=== PATIENT | male | born 1960 | race African-American/Black ===

== ENCOUNTER 2019-01-16 11:19 | Day surgery (SDC) | payer BC ==
[~2019-01-16 11:19] MED LIST: Betamethasone Acetate/Betamethasone Sod Phosphate 30 MG/5 ML MDV ONE; Iopamidol 200-M 10 ML vial ITHECAL ONE; Lidocaine 2% 5 ML SDV ONE; Ropivacaine 0.5% 5 MG/ML 30 ML SDV ONE
--- NOTE | 2019-01-16 19:25 | OR ---
SURGEON: Louise Ma D.O. DATE OF PROCEDURE: 01/16/2019 OPERATING ROOM STAFF PRESENT: 1. Tamara Willis RN. 2. Morgan Joseph RN. 3. RT Felipe. PREOPERATIVE DIAGNOSES: 1. Lumbar degenerative disk disease, L4-5 and L5-S1. 2. Lumbar spinal stenosis. 3. Lumbar, right lower extremity radiculopathy. POSTOPERATIVE DIAGNOSES: 1. Lumbar degenerative disk disease, L4-5 and L5-S1. 2. Lumbar spinal stenosis. 3. Lumbar, right lower extremity radiculopathy. PROCEDURES PERFORMED: 1. Right transforaminal epidural steroid injection at L4. 2. Right transforaminal epidural steroid injection at L5. 3. Fluoroscopic guidance for needle placement. 4. Local with oral Valium for sedation. PREOPERATIVE PAIN: 8/10. POSTOPERATIVE PAIN: 0/10. SCREENING QUESTIONS: The patient answered "no" to all of the following questions: 1. Are you allergic to iodine, Betadine or latex? 2. Do you have a bleeding disorder? 3. Do you have any joint replacements, heart valve replacements, or a pacemaker? 4. Are you allergic to anti-inflammatories or blood thinners? 5. Do you have any current local or systemic infections? MEDICAL NECESSITY: This is a patient with a history of chronic low back pain and lower extremity radicular pain in the above dermatomal pattern that comes in for the above diagnostic and therapeutic procedure. Pertinent positives and negatives for this suspected disease process along with the diagnostic findings and testing are in the patient's history and physical exam. The most salient feature includes radicular pain in the above dermatomal pattern. The patient had failed attempts at conservative therapy including physical therapy, nonsteroidal anti- inflammatory drugs, and other medications. No contraindications to perform this procedure including medical, no bleeding disorders or infections, no psychological, no antisocial personality disorder or active addiction disorder. There are no work-related issues, and, in general, the patient does not have any history of multiple prior interventions, surgeries or nerve blocks which have failed to return the patient to function. The patient's other symptoms to be treated include numbness, paresthesia, dysesthesia or hypoesthesia referred into the left lower extremity or any weakness in the involved myotome. This procedure is being performed in accordance with national guidelines as written by the [employer] (BRAD). DESCRIPTION OF PROCEDURE: The patient had the procedure thoroughly explained including risks, benefits and alternatives. Consent was signed in my clinic indicating understanding and willingness to proceed. The patient presented to [facility] [place] where the patient was escorted to the dressing room to disrobe and change into a hospital gown. Preoperative vital signs were taken and stable. The patient reported that Valium was taken prior to the procedure. The patient was brought to the procedure room and placed in the prone position on the table. A pillow was placed under the abdomen in order to flatten the lumbar lordosis. The back was prepped with ChloraPrep and sterilely draped. All personnel in the operating room were dressed in appropriate attire including surgical scrubs, head and shoe covers. This was to ensure sterility while in the treatment room. During the time fluoroscopy was in use, all personnel in the operating room wore lead ledesma with thyroid collars. Sterile technique was used during the procedure. The fluoroscope was placed for the transforaminal epidural steroid injection. There was no sign of infection at the skin site for needle insertion. The skin was anesthetized with 2% lidocaine with a 27 gauge 1-1/2 inch needle. Then, a 22 gauge 3-1/2 inch spinal needle was advanced for the right L4 TFESI. Under direct fluoroscopic guidance needle position was verified in three views; AP, oblique and lateral, with 0.2 cubic centimeters increments of Isovue-200 dye. No intravascular flow pattern was observed under live fluoroscopy.Then 6 milligrams of Celestone was slowly injected after negative aspiration of heme, cerebrospinal fluid and no paresthesias were noted. The needle was cleared prior to removal from the skin. Then the procedure was repeated as above for the right L5 TFESI. No adverse reactions were noted. The patient was brought to the recovery room awake and in good condition by my staff. The patient was monitored and discharge instructions were given after a brief stay in the recovery area. Both oral and written discharge and follow up instructions were given. The patient will follow up in the clinic in 3-4 weeks post procedure to evaluate the efficacy. The patient verbalized understanding including understanding of those signs and symptoms that would require emergency care and knows how to contact the office if there are any problems or questions in the meantime. FOLLOWUP: In the Pain Clinic in 3 weeks. JUAN M / LUDWIN PACHECO: 01/16/2019 13:00:11 /[id number] MTDWillie
== END 2019-01-16 13:21 ==
LOC: MW.SDS 11:19
PROVIDERS: ATTEND Anesthesiology
DX: M51.16 Intervertebral disc disorders with radiculopathy, lumbar region (principal); M48.061 Spinal stenosis, lumbar region without neurogenic claudication; M46.96 Unspecified inflammatory spondylopathy, lumbar region; M79.18 Myalgia, other site; M19.90 Unspecified osteoarthritis, unspecified site; M25.511 Pain in right shoulder; M25.562 Pain in left knee; M25.561 Pain in right knee
CPT/HCPCS: 64483; 64484; J0702; J2001; J2795; Q9966

== ENCOUNTER 2019-04-07 20:28 | Emergency (ER) | payer BC ==
[2019-04-07] MEDS ORDERED: Bacitracin Oint 1 GM U/D Packet TOP ONE (20:54)
--- NOTE | 2019-04-07 21:00 | EDM.PDOC ---
ED HPI GENERAL MEDICAL PROBLEM - General Chief Complaint: Upper Extremity Injury/Pain Stated Complaint: CUTS ON ARMS Time Seen by Provider: 04/07/19 20:33 Source of Information: Reports: Patient History Limitations: Reports: No Limitations - History of Present Illness INITIAL COMMENTS - FREE TEXT/NARRATIVE: HISTORY AND PHYSICAL: History of present illness: Patient is a 58-year-old male who presents to the emergency room today with complaints of left forearm pain and right shoulder pain. He states he had fallen hitting his right shoulder on a piece of equipment and landed with his left arm being wedged into 2 pieces of metal piping. He does have along the left forearm. He denies hitting his head or having any loss of consciousness. Other than the shoulder and forearm pain he has no other extremity involvement or concerns. Patient denies any fever, chills, headache, change in vision, syncope or near syncope. Denies any chest pain, back pain, shortness of breath or cough. Denies any GI or symptoms. Patient has been eating and drinking appropriately. He states his tetanus is up-to-date within the last 5 years Review of systems: As per history of present illness and below otherwise all systems reviewed and negative. Past medical history: As per history of present illness and as reviewed below otherwise noncontributory. Surgical history: As per history of present illness and as reviewed below otherwise noncontributory. Social history: See social history for further information Family history: As per history of present illness and as reviewed below otherwise noncontributory. Physical exam: General: Well-developed and well-nourished 58-year-old male. Alert and oriented. Nontoxic appearing and in no acute distress. Vital signs are stable and have been reviewed by me. HEENT: Atraumatic, normocephalic, pupils equal and reactive bilaterally, negative for conjunctival pallor or scleral icterus, mucous membranes moist, trachea midline. No drooling or trismus noted. No meningeal signs. No hot potato voice noted. Lungs: Clear to auscultation, breath sounds equal bilaterally, chest nontender. Heart: S1S2, regular rate and rhythm without overt murmur Abdomen: Soft, nondistended, nontender. Negative for masses or hepatosplenomegaly. Negative for costovertebral tenderness. Pelvis: Stable nontender. Genitourinary: Deferred. Rectal: Deferred. Skin: Intact, warm, dry. No lesions or rashes noted. Extremities: Mild pain when palpating the mid left forearm and right shoulder, moves all extremities per self without difficulty or deficits, full range of motion. Strong radial pulses bilaterally. Neurovascular unremarkable. Neuro: Awake, alert, oriented. Cranial nerves II through XII unremarkable. Cerebellum unremarkable. Motor and sensory unremarkable throughout. Exam nonfocal. Notes: X-ray show no acute findings. Small amount of Wilbur density along the superior aspect of the right before meals joint, likely from degenerative changes or prior trauma. Sling was offered. Wound care was provided to the abrasion on the forearm. Supportive care measures were reviewed and discussed. Voices understanding and is agreeable to plan of care. Denies any further questions or concerns at this time. Diagnostics: X-ray left forearm, x-ray right shoulder Therapeutics: Wound care, bacitracin Prescription: None Impression: Right shoulder injury Left forearm injury Fall Plan: 1. Rest, ice, elevate the affected extremity. Keep the abrasion clean and dry. Wash gently twice daily. 2. Tylenol and/or Ibuprofen as needed for pain management. 3. Follow up with the Orthopedic provider as we discussed. Return to the ED as needed and as discussed. Definitive disposition and diagnosis as appropriate pending reevaluation and review of above. Left Elbow Pain Score (Numeric/FACES): 6 Right Shoulder Pain Score (Numeric/FACES): 8 - Related Data Allergies Allergy/AdvReac Type Severity Reaction Status Date / Time No Known Allergies Allergy Verified 04/07/19 20:49 Home Meds: Home Meds . [No Known Home Meds] 04/07/19 [History] Past Medical History - Past Health History Medical/Surgical History: Denies Medical/Surgical History HEENT History: Reports: None Cardiovascular History: Reports: None Respiratory History: Reports: None Gastrointestinal History: Reports: None Genitourinary History: Reports: None Musculoskeletal History: Reports: None Neurological History: Reports: None Psychiatric History: Reports: None Endocrine/Metabolic History: Reports: None Hematologic History: Reports: None Immunologic History: Reports: None Oncologic (Cancer) History: Reports: None Dermatologic History: Reports: None - Infectious Disease History Infectious Disease History: Reports: None - Past Surgical History Head Surgeries/Procedures: Reports: None Male Surgical History: Reports: None Social & Family History - Tobacco Use Smoking Status *Q: Never Smoker Second Hand Smoke Exposure: No - Caffeine Use Caffeine Use: Reports: None - Recreational Drug Use Recreational Drug Use: No Review of Systems - Review of Systems Review Of Systems: ROS reveals no pertinent complaints other than HPI. ED EXAM, GENERAL - Physical Exam Exam: See Below (See dictation) Course - Vital Signs Last Recorded V/S: Last Vital Signs Temp 97.6 F 04/07/19 20:45 Pulse 82 04/07/19 20:45 Resp 18 04/07/19 20:45 BP 123/68 04/07/19 20:45 Pulse Ox 97 04/07/19 20:45 - Orders/Labs/Meds Meds: Medications Discontinued Medications Generic Name Dose Route Start Last Admin Trade Name Freq PRN Reason Stop Dose Admin Bacitracin 1 dose 04/07/19 20:54 04/07/19 22:16 Bacitracin Oint 1 Gm TOP 04/07/19 20:55 1 dose ONETIME ONE Administration Departure - Departure Time of Disposition: 22:41 Disposition: Home, Self-Care 01 Clinical Impression: Forearm injury Qualifiers: Encounter type: initial encounter Laterality: left Qualified Code(s): S59.912A - Unspecified injury of left forearm, initial encounter Right shoulder injury Qualifiers: Encounter type: initial encounter Qualified Code(s): S49.91XA - Unspecified injury of right shoulder and upper arm, initial encounter - Discharge Information Referrals: Jose Rangel MD [Primary Care Provider] - Forms: ED Department Discharge Additional Instructions: The following information is given to patients seen in the emergency department who are being discharged to home. This information is to outline your options for follow-up care. We provide all patients seen in our emergency department with a follow-up referral. The need for follow-up, as well as the timing and circumstances, are variable depending upon the specifics of your emergency department visit. If you don't have a primary care physician on staff, we will provide you with a referral. We always advise you to contact your personal physician following an emergency department visit to inform them of the circumstance of the visit and for follow-up with them and/or the need for any referrals to a consulting specialist. The emergency department will also refer you to a specialist when appropriate. This referral assures that you have the opportunity for follow-up care with a specialist. All of these measure are taken in an effort to provide you with optimal care, which includes your follow-up. Under all circumstances we always encourage you to contact your private physician who remains a resource for coordinating your care. When calling for follow-up care, please make the office aware that this follow-up is from your recent emergency room visit. If for any reason you are refused follow-up, please contact the [facility] Emergency Department at and asked to speak to the emergency department charge nurse. [facility] [address] [place] [id number] [address] [address] [facility] - [facility] Professional Building [address] [place] [address], [address] [place] [address] 1. Rest, ice, elevate the affected extremity. Keep the abrasion clean and dry. Wash gently twice daily. 2. Tylenol and/or Ibuprofen as needed for pain management. 3. Follow up with the Orthopedic provider as we discussed. Return to the ED as needed and as discussed.
--- NOTE | 2019-04-07 22:34 | CR ---
INDICATION: Pain following fall. TECHNIQUE: Two views left forearm. FINDINGS: No acute fracture or dislocation involving the bones of the left forearm. Scattered tiny punctate areas of hyperdensity in the ulnar aspect of the mid to distal left forearm could be vascular calcifications or tiny opaque foreign bodies. Remainder negative. Dictated by Anibal Jorgensen MD @ Apr 07 2019 10:31PM Signed by Dr. Anibal Jorgensen @ Apr 07 2019 10:33PM
--- NOTE | 2019-04-07 22:36 | CR ---
INDICATION: Pain following fall. TECHNIQUE: Two views right shoulder. COMPARISON: Right shoulder 01/18/2019. FINDINGS: Small amount of ossific density along the superior aspect of the right AC joint is stable and could be related to prior trauma or degenerative change. No acute fracture or dislocation right shoulder. 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 Tiny punctate lucencies in the right humeral head better visualized on today`s exam and nonspecific. Remainder negative. Dictated by Anibal Jorgensen MD @ Apr 07 2019 10:35PM Signed by Dr. Anibal Jorgensen @ Apr 07 2019 10:35PM
== END 2019-04-07 22:49 | disposition home or self-care (01) ==
LOC: MW.ED 20:28
DX: S50.812A Abrasion of left forearm, initial encounter (principal); S49.91XA Unspecified injury of right shoulder and upper arm, initial encounter; W01.198A Fall on same level from slipping, tripping and stumbling with subsequent striking against other object, initial encounter; Y99.0 Civilian activity done for income or pay
CPT/HCPCS: 73030-26-RT; 73030-RT; 73090-26-LT; 73090-LT; 99283; 99283-25